=== PATIENT | male | born 1945 | race Caucasian/White ===

== ENCOUNTER 2018-03-19 17:16 | Emergency (ER) | payer MEDICARE ==
[~2018-03-19] VITALS: Ht 180.3 cm; Wt 135.2 kg
[2018-03-19] MEDS ORDERED: SODIUM CHLORIDE 0.9% 1000ML 1,000 ML IV STA (17:32)
[2018-03-19] MEDS ORDERED: ACETAMINOPHEN 325 MG TAB PO ONE (17:45)
[2018-03-19] MEDS ORDERED: LEVOFLOXACIN 500MG/D5W 100ML 100 ML IV ONE (18:00)
[2018-03-19] MEDS ORDERED: LEVOFLOXACIN 750MG/D5W 150ML 150 ML IV ONE (18:30)
[2018-03-19 21:17] VITALS: BP 136/88
== END 2018-03-19 21:31 | disposition home or self-care (01) ==
LOC: FSED 17:16
DX: R50.9 Fever, unspecified (principal); R10.31 Right lower quadrant pain; R10.13 Epigastric pain; R35.0 Frequency of micturition; N39.0 Urinary tract infection, site not specified
CPT/HCPCS: 74177; 80053; 81003; 82553; 83605; 83880; 84484; 85025; 87040; 87071; 87086; 87186; 87205; 93005; 99284; J1956; J7030